=== PATIENT | female | born 1950 | race Caucasian/White ===

== ENCOUNTER 2018-02-25 11:52 | Outpatient (CLI) | payer MEDICARE, OTHER, SELFPAY ==
--- NOTE | 2018-02-25 11:59 | DI.RAD.S_ITS ---
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 FINDINGS: Fluoroscopic spot filming was performed to verify placement of spinal needles at the inferior edge of the right sacroiliac joint, as labeled on the films. Appropriate location(s) of the needle tip(s) was confirmed by injection of iodinated contrast. IMPRESSION: Fluoroscopic guidance for right sacroiliac joint injection. Dictated by: Asif Curtis M.D. on 02/25/2018 at 17:36 Approved by: Asif Curtis M.D. on 02/25/2018 at 17:37
[2018-02-25 12:22] VITALS: BP 133/67; PULSE 58; RESP 18; TEMP 36.4; O2SAT 97
--- NOTE | 2018-02-25 12:36 | P.PCN_ITS ---
Procedures Date/Time Date of procedure: 02/25/18 Time of procedure: 12:13 General Procedure description: PREOP Dx: Sacroiliac joint pain/DJD POST OP DX: Sacroliac Joint Pain/DJD Procedures: Fluoroscopic guided contrast controlled sacroiliac joint injection Physician: Avinash Enrique D.O. Indications: Annabel is referred for treatment of right sacroiliac joint DJD Description of procedure Fluoroscopic guided, contrast controlled sacroiliac joint injection Following denial of allergies and review of potential side effects and complications, including, but not necessarily limited to, infection, allergic reaction, local tissue breakdown, temporary as well as permanent nerve injury, paralysis, stroke and possible , the patient indicated that they understood and agreed to proceed. An informed consent was signed by the patient , witnessed by a nurse, and placed in the patient's chart. Additionally, other treatment options including modalities, medications, and physical therapy were reviewed with the patient. Per the patient request, IV conscious sedation was administered via 3 mg of Versed to patient comfort. The patient's vital signs were monitored throughout the procedure by both the nurse and the position without significant fluctuation. The patient remained conversant throughout the procedure. In the prone position following sterile prep and drape of the pelvic region, the hyper lucency on in the inferior aspect of the sacroiliac joint was identified fluoroscopically the skin was anesthetized be a 25 gauge 1 eventual with approximately 2 cc of 1% lidocaine solution. At this point, a 22 gauge 3 in spinal needle was atraumatically introduced and advanced under fluoroscopic guidance into the inferior aspect of the sacroiliac joint. Following negative aspiration, approximately 0.3 cc of Isovue-300 was injected confirming intra- articular placement without vascular uptake. Radiographic data, including multiple fluoroscopic views of the pelvis, reveals a spinal needle in the sacroiliac joint hyper loosen zone. Subsequent view show flow contrast tear superiorly and inferiorly within the joint capsule without vascular intrathecal uptake. At this point a total of 1 cc or 0 8 of 0.5% Marcaine was combined with 1 cc of 6 mg of betamethasone was injected without incident. The patient was then transferred to the recovery area with a bur observed for an appropriate time after the injection. The patient reverted a vas score of 7 prior to the procedure and postprocedure vas of 1. Total fluoroscopy time: 22.7 sec Total conscious sedation time: 24 min Postop instructions The patient was provided with a pain like to continue to record the patient's response to the target specific procedure prior to the patient's follow-up visit with the referring physician. Additionally, specific post injection care instructions and a contact number to our office were provided if concerns arise regarding the possible complications associated with procedure are suspected. Avinash Enrique D.O. Complications: none
[2018-02-25 12:37] VITALS: BP 146/96; PULSE 59; RESP 16; O2SAT 97
[2018-02-25] MEDS: MIDAZOLAM 5 MG/5 ML VIAL IV (12:40)
[2018-02-25] MEDS: BETAMETHASONE 30 MG/5 ML MDV 12 MG INJ (12:40)
[2018-02-25] MEDS: IOPAMIDOL 15 ML VIAL 3 ML INJ (12:40)
[2018-02-25] MEDS: BUPIVACAINE 0.5% (PF) 30 ML VIAL INJ (12:40)
[2018-02-25 12:42] VITALS: BP 150/80; PULSE 57; RESP 16; O2SAT 97
[2018-02-25 12:47] VITALS: BP 145/67; PULSE 57; RESP 17; O2SAT 97
[2018-02-25 12:52] VITALS: BP 153/61; PULSE 54; RESP 15; O2SAT 99
[2018-02-25 13:15] VITALS: PULSE 56; RESP 18; O2SAT 98
--- NOTE | 2018-02-25 13:32 | PC.NURSE ---
bp machine unable to take last bp
== END 2018-02-25 13:31 ==
LOC: RAD 11:57
PROVIDERS: Visit Provider Physical Medicine & Rehabilitation
DX: M47.818 Spondylosis without myelopathy or radiculopathy, sacral and sacrococcygeal region (principal); M53.3 Sacrococcygeal disorders, not elsewhere classified; M51.36 Other intervertebral disc degeneration, lumbar region
CPT/HCPCS: 27096; 99152; J0702; J2250